=== PATIENT | female | born 1940 | race Caucasian/White ===

== ENCOUNTER 2020-09-10 15:01 | Outpatient (CLI) | payer OTHER, SELFPAY ==
--- NOTE | 2020-09-10 15:07 | MM_ITS ---
WS: [id number] BILATERAL DIGITAL SCREENING MAMMOGRAPHY WITH CAD CLINICAL INFORMATION: SCREENING HISTORY: Screening mammogram. No current complaints. COMPARISON: August 10, 2018 TECHNIQUE: Bilateral CC and MLO views. FINDINGS: Scattered fibroglandular densities bilaterally. No suspicious focal mass, asymmetry, calcifications, or architectural distortion. No evidence of malignancy. A few punctate calcifications. MM/[id number] IMPRESSION: BI-RADS: 2-Benign FOLLOW UP: 1 Year Follow-up Recommend return to annual screening mammography.
== END 2020-09-10 15:02 | disposition home or self-care (01) ==
LOC: RADSHAW 15:06
PROVIDERS: PCP Emergency Medicine Emergency Medical Services; Visit Provider Emergency Medicine Emergency Medical Services
DX: Z12.31 Encounter for screening mammogram for malignant neoplasm of breast (principal)
CPT/HCPCS: 77067

== ENCOUNTER 2022-05-05 13:16 | Outpatient (CLI) | payer OTHER, SELFPAY ==
--- NOTE | 2022-05-05 14:02 | CT_ITS ---
WS: [id number] CT CHEST TECHNIQUE: Contrast enhanced CT of the chest with coronal and sagittal reformatted images. CLINICAL INFORMATION: POSSIBLE NODULE ON CHEST XRAY COMPARISON: None. DLP: 554.[address] scans at [facility] use at least one of these dose optimization techniques: automated e xposure control; mA and/or kV adjustment per patient size (includes targeted exams where dose is matc hed to clinical indication); or iterative reconstruction. FINDINGS: Mild chronic emphysematous changes. No acute pulmonary infiltrates. No focal pneumonia or pleural flu id. Moderate aortic calcification. Normal caliber ascending and descending thoracic aorta. Proximal m ain pulmonary arteries appear normal. Coronary calcification. Small esophageal hiatal hernia. Splenic granulomas. Adrenal glands are normal. RIGHT upper pole renal cyst measuring 3.7 CM. Mild thoracic kyphosis. Mild chronic anterior wedging mid thoracic spine. No mediastinal or hilar lymphadenopathy. No axillary lymphadenopathy. 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 Mild chronic emphysematous changes. No acute pulmonary infiltrates. 2. No suspicious pulmonary parenchymal opacities. 3. No mediastinal or hilar lymphadenopathy. 4. No other acute findings.
[2022-05-05 14:36] LABS: Blood Urea Nitrogen 13 mg/dL (8-23)
[2022-05-05] MEDS: iohexol 350 mg/mL 100 mL Btl IV (14:38)
== END 2022-05-05 13:17 | disposition home or self-care (01) ==
PROVIDERS: PCP Emergency Medicine Emergency Medical Services; Visit Provider Emergency Medicine Emergency Medical Services
DX: Z01.89 Encounter for other specified special examinations (principal)
CPT/HCPCS: 71260; 82565; 84520

== ENCOUNTER → 2023-03-21 11:20 | Outpatient (BNVA) | payer OTHER, SELFPAY | PROVIDERS: PCP Emergency Medicine Emergency Medical Services; Visit Provider Podiatrist Foot & Ankle Surgery | DX: B35.1 Tinea unguium (principal); L84 Corns and callosities; I73.9 Peripheral vascular disease, unspecified; M20.11 Hallux valgus (acquired), right foot; M20.12 Hallux valgus (acquired), left foot | CPT/HCPCS: 11056; 11721; 99203 ==

== ENCOUNTER → 2023-06-06 10:35 | Outpatient (BNVA) | payer OTHER, SELFPAY | PROVIDERS: PCP Emergency Medicine Emergency Medical Services; Visit Provider Podiatrist Foot & Ankle Surgery | DX: B35.1 Tinea unguium (principal); L84 Corns and callosities; I73.9 Peripheral vascular disease, unspecified; M20.11 Hallux valgus (acquired), right foot; M20.12 Hallux valgus (acquired), left foot | CPT/HCPCS: 11056; 11721 ==

== ENCOUNTER → 2023-08-22 10:49 | Outpatient (BNVA) | payer OTHER, SELFPAY | PROVIDERS: PCP Emergency Medicine Emergency Medical Services; Visit Provider Podiatrist Foot & Ankle Surgery | DX: B35.1 Tinea unguium (principal); L84 Corns and callosities; I73.9 Peripheral vascular disease, unspecified; M20.10 Hallux valgus (acquired), unspecified foot | CPT/HCPCS: 11721 ==

== ENCOUNTER → 2023-10-31 11:43 | Outpatient (BNVA) | payer OTHER, SELFPAY | PROVIDERS: PCP Emergency Medicine Emergency Medical Services; Visit Provider Podiatrist Foot & Ankle Surgery | DX: B35.1 Tinea unguium (principal); L84 Corns and callosities; I73.9 Peripheral vascular disease, unspecified; M20.12 Hallux valgus (acquired), left foot; M20.11 Hallux valgus (acquired), right foot | CPT/HCPCS: 11721 ==

== ENCOUNTER → 2024-01-04 14:14 | Outpatient (BNVA) | payer OTHER, SELFPAY | PROVIDERS: PCP Emergency Medicine Emergency Medical Services; Visit Provider Podiatrist Foot & Ankle Surgery | DX: B35.1 Tinea unguium (principal); L84 Corns and callosities; I73.9 Peripheral vascular disease, unspecified; M20.12 Hallux valgus (acquired), left foot; M20.11 Hallux valgus (acquired), right foot | CPT/HCPCS: 11721 ==

== ENCOUNTER 2024-04-18 10:18 | Outpatient (CLI) | payer OTHER, SELFPAY ==
--- NOTE | 2024-04-18 10:24 | MM_ITS ---
WS: [id number] BILATERAL SCREENING DIGITAL TOMOSYNTHESIS MAMMOGRAM WITH CAD HISTORY: SCREENING COMPARISON: 09/10/2020, 08/10/2018 Bilateral CC and MLO views with tomosynthesis and synthetic mammography submitted. Computer aided det ection analyzed. Limited evaluation of each breast due to difficulty positioning patient. Very little RIGHT pectoralis muscle is included. Breast composition: There are scattered areas of fibroglandular density. No suspicious masses, microc alcifications or architectural distortion. There are a few scattered calcifications within each breas t. MM/[place] [id number] IMPRESSION: BI-RADS: 2 - Benign. FOLLOW UP: 1 Year Follow-up
== END 2024-04-18 10:19 | disposition home or self-care (01) ==
LOC: RAD 10:18
PROVIDERS: PCP Nurse Practitioner Family; Visit Provider Nurse Practitioner Family
DX: Z12.31 Encounter for screening mammogram for malignant neoplasm of breast (principal); R92.323 Mammographic fibroglandular density, bilateral breasts; R92.1 Mammographic calcification found on diagnostic imaging of breast
CPT/HCPCS: 77063; 77067

== ENCOUNTER → 2024-06-27 14:02 | Outpatient (BNVA) | payer OTHER, SELFPAY | PROVIDERS: PCP Nurse Practitioner Family; Visit Provider Podiatrist Foot & Ankle Surgery | DX: B35.1 Tinea unguium (principal); L84 Corns and callosities; I73.9 Peripheral vascular disease, unspecified; M20.11 Hallux valgus (acquired), right foot; M20.12 Hallux valgus (acquired), left foot | CPT/HCPCS: 11056; 11721 ==

== ENCOUNTER → 2024-09-05 15:56 | Outpatient (BNVA) | payer OTHER, SELFPAY | PROVIDERS: PCP Nurse Practitioner Family; Visit Provider Podiatrist Foot & Ankle Surgery | DX: B35.1 Tinea unguium (principal); L84 Corns and callosities; I73.9 Peripheral vascular disease, unspecified; M20.12 Hallux valgus (acquired), left foot; M20.11 Hallux valgus (acquired), right foot | CPT/HCPCS: 11056; 11721 ==

== ENCOUNTER → 2024-11-07 15:08 | Outpatient (BNVA) | payer OTHER, SELFPAY | PROVIDERS: PCP Nurse Practitioner Family; Visit Provider Podiatrist Foot & Ankle Surgery | DX: I73.9 Peripheral vascular disease, unspecified (principal); B35.1 Tinea unguium; L84 Corns and callosities; M20.12 Hallux valgus (acquired), left foot; M20.11 Hallux valgus (acquired), right foot | CPT/HCPCS: 11056; 11721 ==

== ENCOUNTER → 2025-01-10 14:43 | Outpatient (BNVA) | payer OTHER, SELFPAY | PROVIDERS: PCP Nurse Practitioner Family; Visit Provider Podiatrist Foot & Ankle Surgery | DX: I73.9 Peripheral vascular disease, unspecified (principal); B35.1 Tinea unguium; L84 Corns and callosities; M20.12 Hallux valgus (acquired), left foot | CPT/HCPCS: 11055; 11721 ==

== ENCOUNTER → 2025-03-14 13:54 | Outpatient (BNVA) | payer OTHER, SELFPAY | PROVIDERS: PCP Nurse Practitioner Family; Visit Provider Podiatrist Foot & Ankle Surgery | DX: I73.9 Peripheral vascular disease, unspecified (principal); B35.1 Tinea unguium; L84 Corns and callosities; M20.11 Hallux valgus (acquired), right foot; M20.12 Hallux valgus (acquired), left foot | CPT/HCPCS: 11721 ==

== ENCOUNTER → 2025-05-23 13:57 | Outpatient (BNVA) | payer OTHER, SELFPAY | PROVIDERS: PCP Nurse Practitioner Family; Visit Provider Podiatrist Foot & Ankle Surgery | DX: I73.9 Peripheral vascular disease, unspecified (principal); B35.1 Tinea unguium; L84 Corns and callosities; L60.8 Other nail disorders; M20.10 Hallux valgus (acquired), unspecified foot; M20.12 Hallux valgus (acquired), left foot | CPT/HCPCS: 11056; 11721 ==

== ENCOUNTER → 2025-08-01 14:10 | Outpatient (BNVA) | payer OTHER, SELFPAY | PROVIDERS: PCP Nurse Practitioner Family; Visit Provider Podiatrist Foot & Ankle Surgery | DX: E11.8 Type 2 diabetes mellitus with unspecified complications (principal); B35.1 Tinea unguium; L84 Corns and callosities; L60.8 Other nail disorders; I73.9 Peripheral vascular disease, unspecified; M20.10 Hallux valgus (acquired), unspecified foot; M20.12 Hallux valgus (acquired), left foot; M20.11 Hallux valgus (acquired), right foot | CPT/HCPCS: 11055; 11721 ==